=== PATIENT | female | born 1990 | race Caucasian/White ===

== ENCOUNTER 2021-06-09 22:16 | Inpatient (IN) | payer BC ==
[~2021-06-09] VITALS: Ht 170.2 cm; Wt 65.0 kg
[2021-06-09] MEDS: LACTATED RINGERS 1,000 ML IV SCH ×2 (22:30→23:00)
[2021-06-09] MEDS ORDERED: METOCLOPRAMIDE 5 MG/ML, 2ML IVPush PRN (23:00)
[2021-06-09] MEDS: D5%-LACTATED RINGERS 1,000 ML IV SCH (23:00)
[2021-06-09] MEDS ORDERED: TERBUTALINE 1 MG/ML, 1ML IVPush PRN (23:00)
[2021-06-09] MEDS ORDERED: PLEASE ENTER ALLERGIES MC SCH (23:00)
[2021-06-09] MEDS ORDERED: OXYTOCIN 30U/ 0.9% NaCL 500ML 500 ML IV ONE (23:00)
[2021-06-09] MEDS ORDERED: FENTANYL PF 100 MCG/2ML IV PRN (23:00)
[2021-06-09] MEDS ORDERED: TERBUTALINE 1 MG/ML, 1ML SQ PRN (23:00)
[2021-06-09] MEDS ORDERED: SODIUM CITRATE/CITRIC ACID 30 ML UDC PO PRN (23:00)
[2021-06-09] MEDS ORDERED: ONDANSETRON 2MG/ML, 2ML IVPush PRN (23:00)
[2021-06-09] MEDS ORDERED: FENTANYL PF 100 MCG/2ML IVPush PRN (23:00)
[2021-06-09] MEDS ORDERED: LIDOCAINE 1%, 20ML ONE (23:02)
[2021-06-09] MEDS ORDERED: MISOPROSTOL 200 MCG TABLET ONE (23:02)
[2021-06-09] MEDS ORDERED: OXYTOCIN 30U/ 0.9% NaCL 500ML 500 ML ONE (23:02)
[2021-06-09 23:36] LABS: BASOPHILS % (AUTO) 0 % (0-1); EOSINOPHILS % (AUTO) 0 % (1-7); LYMPHOCYTES % (AUTO) 3 % (22-44); MEAN CORPUSCULAR HEMOGLOBIN 33.3 pg (27.0-34.8); MEAN CORPUSCULAR HGB CONC 35.1 g/dL (32.4-35.8); MEAN PLATELET VOLUME 8.7 fL (7.4-10.4); MONOCYTES % (AUTO) 8 % (2-9); NEUTROPHILS % (AUTO) 89 % (42-75); PLATELET COUNT 118 x10^3/uL (130-400); RED BLOOD COUNT 3.71 x10^6/uL (3.82-5.3); RED CELL DISTRIBUTION WIDTH 12.9 % (9.6-15.2)
[2021-06-09] MEDS ORDERED: SODIUM CITRATE/CITRIC ACID 15 ML UDC ONE (23:56)
[2021-06-09] MEDS ORDERED: METOCLOPRAMIDE 5 MG/ML, 2ML ONE (23:56)
[2021-06-10] MEDS ORDERED: MEPERIDINE/PF 25MG/0.5ML IVPush PRN
[2021-06-10] MEDS ORDERED: hydrALAzine 20 MG/ML, 1ML IV PRN
[2021-06-10] MEDS ORDERED: OXYcodone 5 MG/5 ML ORAL.SOL UDC PO PRN
[2021-06-10] MEDS ORDERED: LABETALOL 5MG/ML, 20ML IV PRN
[2021-06-10] MEDS ORDERED: PROMETHAZINE 25 MG/ML, 1ML IV PRN
[2021-06-10] MEDS ORDERED: HYDROmorphone 2 MG/ML, 1ML IVPush PRN
[2021-06-10] MEDS ORDERED: ONDANSETRON 2MG/ML, 2ML IVPush PRN
[2021-06-10] MEDS ORDERED: EPHEDRINE 50 MG/ML, 1ML IVPush PRN
[2021-06-10] MEDS ORDERED: TRANEXAMIC ACID 100 MG/ML, 10ML IV ONE
[2021-06-10] MEDS ORDERED: CALCIUM CARBONATE 500 MG TAB.CHEW PO PRN
[2021-06-10] MEDS ORDERED: HYDROcodone/APAP 7.5-325MG/15ML UDC PO PRN
[2021-06-10] MEDS ORDERED: ALBUTEROL SULFATE 2.5 MG/3 ML NPPB PRN
[2021-06-10] MEDS ORDERED: MIDAZOLAM 1 MG/ML, 2ML IV PRN
[2021-06-10] MEDS ORDERED: AZITHROMYCIN 500 MG in SODIUM CHLORIDE 0.9% 250 ML IV ONE
[2021-06-10] MEDS ORDERED: METOPROLOL 1 MG/ML, 5ML IV PRN
[2021-06-10] MEDS ORDERED: FENTANYL PF 100 MCG/2ML IV PRN
[2021-06-10] MEDS ORDERED: CEFAZOLIN 1,000 MG ONE (00:18)
[2021-06-10] MEDS ORDERED: OXYTOCIN 10 UNITS/ML, 1ML ONE (00:18)
[2021-06-10] MEDS ORDERED: DEXAMETHASONE 4 MG/ML, 1ML ONE (00:18)
[2021-06-10] MEDS ORDERED: FENTANYL PF 100 MCG/2ML ONE ×2 (00:18→00:19)
[2021-06-10] MEDS ORDERED: PHENYLEPHRINE 10 MG/ML ONE (00:18)
[2021-06-10] MEDS ORDERED: EPHEDRINE 50 MG/ML, 1ML ONE (00:18)
[2021-06-10] MEDS ORDERED: KETOROLAC 30 MG/1 ML ONE (00:18)
[2021-06-10] MEDS ORDERED: ONDANSETRON 2MG/ML, 2ML ONE (00:18)
[2021-06-10] MEDS: PLEASE ENTER ALLERGIES MC SCH ×5 (01:00→05:00)
[2021-06-10 03:54] VITALS: BP 132/93
[2021-06-10] MEDS: D5%-LACTATED RINGERS 1,000 ML IV SCH ×3 (07:00→23:00)
[2021-06-10 08:00] VITALS: BP 124/71
[2021-06-10 09:02] LABS: BASOPHILS % (AUTO) 0 % (0-1); EOSINOPHILS % (AUTO) 0 % (1-7); LYMPHOCYTES % (AUTO) 5 % (22-44); MEAN CORPUSCULAR HEMOGLOBIN 33.3 pg (27.0-34.8); MEAN PLATELET VOLUME 8.3 fL (7.4-10.4); MONOCYTES % (AUTO) 6 % (2-9); NEUTROPHILS % (AUTO) 89 % (42-75); PLATELET COUNT 105 x10^3/uL (130-400); RED BLOOD COUNT 2.94 x10^6/uL (3.82-5.3); RED CELL DISTRIBUTION WIDTH 12.7 % (9.6-15.2)
[2021-06-10 12:03] VITALS: BP 112/71
[2021-06-10] MEDS: LACTATED RINGERS 1,000 ML IV SCH ×2 (15:00→23:00)
[2021-06-10 16:47] VITALS: BP 113/69
[2021-06-10 20:10] VITALS: BP 108/71
[2021-06-11] VITALS (7 sets, daily range): BP systolic 106–124; BP diastolic 69–78
[2021-06-11] MEDS ORDERED: IBUPROFEN 600 MG TABLET ONE (01:53)
[2021-06-11] MEDS: IBUPROFEN 200 MG TABLET PO PRN ×3 (02:00→21:24)
[2021-06-11] MEDS ORDERED: SIMETHICONE 80 MG CHEW TAB PO PRN (23:30)
[2021-06-11] MEDS ORDERED: DOCUSATE 100 MG CAPSULE PO PRN (23:30)
[2021-06-11] MEDS: OXYTOCIN 30U/ 0.9% NaCL 500ML 500 ML IV SCH (23:30)
[2021-06-12 03:56] VITALS: BP 109/68
[2021-06-12 08:15] VITALS: BP 123/76
[2021-06-12] MEDS: IBUPROFEN 200 MG TABLET PO PRN (08:30)
[2021-06-12] MEDS ORDERED: PRENATAL VIT/IRON/FA 1 EACH TABLET PO SCH (09:00)
[2021-06-12] MEDS ORDERED: PREN1TAB60 PO (09:14)
[2021-06-12] MEDS: OXYTOCIN 30U/ 0.9% NaCL 500ML 500 ML IV SCH (09:30)
== END 2021-06-12 12:10 | disposition home or self-care (01) | DRG 788 ==
LOC: LDOP 22:16 → LDIP 22:38 → 2NW 06-10 03:44
PROVIDERS: ADMIT Obstetrics & Gynecology; ATTEND Obstetrics & Gynecology
PROC: 10D00Z1 Extraction of Products of Conception, Low, Open Approach (ICD-10-PCS; principal; 2021-06-10)
DX: O32.4XX0 Maternal care for high head at term, not applicable or unspecified (principal); Z3A.42 42 weeks gestation of pregnancy; Z37.0 Single live birth; Z3A.49 Greater than 42 weeks gestation of pregnancy; Z20.822 Contact with and (suspected) exposure to COVID-19; O48.1 Prolonged pregnancy
CPT/HCPCS: 36415; 85025; 86592; 86850; 86900; 87635; 87806; G0378; J0690; J1100; J1885; J2405; J3010; G0475; J2370; J2590; J2765; J7120